=== PATIENT | male | born 1965 | race Caucasian/White ===

== ENCOUNTER → 2019-08-19 | Outpatient (CLI) | payer BC | LOC: CARD 09:09 | PROVIDERS: ATTEND Nurse Practitioner Primary Care | DX: I48.19 Other persistent atrial fibrillation (principal); I27.20 Pulmonary hypertension, unspecified | CPT/HCPCS: 93306 ==

== ENCOUNTER 2019-08-24 06:35 | Day surgery (SDC) | payer BC ==
[~2019-08-24] VITALS: Ht 185 cm; Wt 124.0 kg
[2019-08-24] VITALS (9 sets, daily range): BP systolic 103–139; BP diastolic 86–104
[2019-08-24] MEDS ORDERED: HEParin (CATH LAB) 2,000 ML IV ONE (06:39)
[2019-08-24] MEDS ORDERED: NS IV 1000 ML 1,000 ML ONE (06:39)
[2019-08-24] MEDS ORDERED: LIDOCAINE 1% INJ 20 ML 20 ML VIAL ONE (06:39)
[2019-08-24] MEDS ORDERED: NS IV 1000 ML 1,000 ML IV SCH ×3 (06:45→09:39)
[2019-08-24] MEDS ORDERED: RIVA20TA2 PO (07:10)
[2019-08-24] MEDS ORDERED: MTP25TSR PO (07:10)
[2019-08-24] MEDS ORDERED: ATOR20TA66 PO (07:10)
[2019-08-24 07:11] LABS: HEMOGLOBIN 15.4 G/DL (13.3-17.7); MEAN PLATELET VOLUME 10.3 FL (7.4-10.4); RED CELL DISTRIBUTION WIDTH 13.1 % (10.0-14.5); WHITE BLOOD COUNT 7.9 10^3/uL (4.3-11.0)
[2019-08-24 07:31] LABS: INR 0.9 (0.8-1.4); PROTHROMBIN TIME PATIENT 12.5 SEC (12.2-14.7)
[2019-08-24 07:40] LABS: BILIRUBIN,TOTAL 0.6 MG/DL (0.1-1.0); CALCIUM 9.1 MG/DL (8.5-10.1); CREATININE SERUM 1.28 MG/DL (0.60-1.30); POTASSIUM 4.4 MMOL/L (3.6-5.0); TOTAL PROTEIN 6.9 GM/DL (6.4-8.2)
[2019-08-24] MEDS ORDERED: MIDAZOLAM 5 MG/5 ML (VERSED) VIAL ONE (07:43)
[2019-08-24] MEDS ORDERED: fentaNYL INJECTION 100 MCG/2 ML AMP ONE ×2 (07:43→09:27)
[2019-08-24] MEDS ORDERED: DIGOXIN 0.25 MG (LANOXIN) TAB PO ONE (09:00)
--- NOTE | 2019-08-24 09:34 | Cardiac Procedure Note-CS/ASA ---
Pre-Procedure Note Pre-Op Procedure Note H&P Reviewed The H&P was reviewed, patient examined and no changes noted. Date H&P Reviewed: Aug 24, 2019 Time H&P Reviewed: 08:40 Conscious Sedation Pre-Proced Time 08:40 ASA Score 3 For ASA 3 and 4: Consider anesthesia and medical clearance. Also, for patients with a history of failed moderate sedation consider anesthesia. Airway Lungs Heart ASA score ASA 1: a normal healthy patient ASA 2: a patient with a mild systemic disease (mid diabetes, controlled hypertension, obesity ASA 3: a patient with a severe systemic disease that limits activity (angina, COPD, prior Myocardial infarction) ASA 4: a patient with an incapacitating disease that is a constant threat to life (CHF, renal failure) ASA 5: a moribund patient not expected to survive 24 hrs. (ruptured aneurysm) ASA 6: a declared brain- patient whose organs are being harvested. For emergent operations, add the letter E after the classification Mallampati Classification Grade 2 Sedation Plan Analgesia, Amnesia, Plan communicated to team members, Discussed options with patient/fam, Discussed risks with patient/fam The patient is an appropriate candidate to undergo the planned procedure, sedation, and anesthesia. The patient immediately re-assessed prior to indication. CHUCKY SUTTON MD FACP FAC CCDS Aug 24, 2019 09:34
[2019-08-24] MEDS ORDERED: DIGO250T3 PO (09:38)
--- NOTE | 2019-08-24 09:39 | Discharge Inst-Cardiology ---
Discharge Inst-Cardiac Discharge Medications New Medications: Digoxin (Digoxin) 250 Mcg Tablet 250 MCG PO DAILY, #30 TAB 3 Refills Continued Medications: Atorvastatin Calcium (Atorvastatin Calcium) 20 Mg Tablet 20 MG PO DAILY, TAB Metoprolol Succinate (Metoprolol Succinate) 25 Mg Tab.er.24h 25 MG PO DAILY, TAB Rivaroxaban (Xarelto Tablet) 20 Mg Tablet 20 MG PO DAILY@1700, TAB CHUCKY SUTTON MD FACP FAC CCDS Aug 24, 2019 09:39
--- NOTE | 2019-08-24 09:39 | Discharge Inst-Post CATH ---
Discharge Inst-CATH/EP Post Cardiac Cath/EP D/C Inst Follow Up/Plan F/u with Dr Beverly tomorrow or within this week ACTIVITY * Go Home directly and rest. * Limit activity of the leg (or wrist if it was used) for 7 days including aerobics, swimming, jogging, bicycling, etc. * Restrict stair-climbing for 7 days if possible, if not, climb up with your non-cath leg, then bring together on the same step. * Avoid lifting, pushing, pulling or excessive movement of the affected extremity for 7 days. * Customary sexual activity may be resumed after 2 days-use caution not to use a position that strains or causes pain to the affected extremity. * No driving for 24 hours. * NO SMOKING. * Avoid straining for bowel movements for 7 days. * Gentle walking on level ground is allowed. * Returning to work will depend on the type of procedure and the results. Your doctor will discuss this with you. CALL YOUR DOCTOR FOR ANY OF THE FOLLOWING: *If bleeding from the puncture site occurs- Apply gentle pressure to site with clean cloth and call your doctor or EMS. * If a knot or lump forms under the skin, increases in size, or causes pain. * If bruising appears to be worsening or moving further down your leg instead of disappearing. * Temperature above 101 F. CARE OF YOUR GROIN INCISION; * Bruising or purple discoloration of the skin near the puncture site is common. * You may shower only, no bathtub bathing for 5 days. Be careful to avoid slipping as your leg may feel stiff. * If a closure device was used on your femoral artery, please see the attached guide regarding care of the device and your leg. * Leave dressing on FOR 24 hours. CARE OF YOUR WRIST INCISION; * Bruising or purple discoloration of the skin near the puncture site is common. * You may shower. * DO NOT submerge wrist. * Leave dressing on FOR 24 hours. CHUCKY BEVERLY MD FACP [facility] CCDS Aug 24, 2019 09:39
[2019-08-24] MEDS ORDERED: PATIENT MAY USE OWN MEDS, ALL PO SCH ×2 (09:45)
[2019-08-24] MEDS ORDERED: RIVAROXABAN 20 MG TABLET (XARELTO) PO ONE (09:45)
--- NOTE | 2019-08-24 11:02 | CARDIAC CATHETERIZATION ---
DATE OF SERVICE: 08/24/2019 CARDIAC CATHETERIZATION REPORT INDICATIONS: The patient is a 54-year-old man who has slowly progressive exertional shortness of breath. He has chronic persistent atrial fibrillation that he reports was first diagnosed in or around 2016. He has coronary artery disease risk factors, hypertension, and hyperlipidemia. He has a history of chronic tobacco use. Given his symptoms of shortness of breath and multiple risk factors, complete heart catheterization was recommended and carried out today after having obtained an informed consent. DESCRIPTION OF PROCEDURE: He was brought to the cardiac catheterization laboratory in a fasting state. Right groin was prepared and draped in the usual sterile fashion. Lidocaine 1% was used for local anesthesia. Modified Seldinger technique was used to advance a 5-[place] Island[place] sheath in right femoral artery and a 7-[place] sheath in the right femoral vein. A 7-[place]er [place] catheter was used to carry out right heart catheterization. The [place] catheter was then removed and left heart catheterization was carried out using a 5-[place] pigtail catheter. Left ventricular angiography was performed. Pigtail was pulled back and removed. We used 5-[place] Island[place] JL4 catheter for left coronary angiography, 5-[place] Island[place] JR4 catheter for right coronary angiography. Angiography of the right femoral artery was carried out through the sheath at the end of the procedure. The site of sheath insertion was not suitable for Mynx. Manual pressure was used to achieve hemostasis. He tolerated the procedure well. HEMODYNAMICS: Pulmonary artery pressure was 43/20 with a mean of 28 mmHg. Mean pulmonary wedge pressure was 18 mmHg. Right ventricular pressure was 38/12. Mean right atrial pressure was 11 mmHg. Left ventricular end-diastolic pressure was 16 mmHg. There was no significant pressure gradient on pullback across the aortic valve. Oxygen saturation was measured in the pulmonary artery, right ventricle, right atrium and the left ventricle. There was no significant oxygen saturation difference, indicating no significant intracardiac shunt. LEFT VENTRICULAR ANGIOGRAPHY: Left ventricular angiography was carried out in the right anterior oblique projection only. Global left ventricular systolic function is mildly to moderately impaired. There is mild to moderate global hypokinesis. Left ventricular ejection fraction is approximately 45%. CORONARY ANGIOGRAPHY: Left main coronary artery, left circumflex artery, left anterior descending artery, right coronary artery do not exhibit angiographically significant obstructive coronary artery disease. Right coronary artery is dominant. CONCLUSIONS: 1. No angiographically significant coronary artery disease. 2. Wkzt-hp-nyjnhifa impairment of global left ventricular systolic function with mild to moderate global hypokinesis and left ventricular ejection fraction 40-45%. 3. Mild to moderate elevation of left ventricular end-diastolic pressure and the pulmonary wedge pressure. 4. Mild pulmonary hypertension with a pulmonary artery pressure of 43/20 with a mean of 28 mmHg. DISCUSSION AND RECOMMENDATIONS: Based on the results of this study, our recommendation is to continue efforts at the ventricular rate control or cheondoism of sinus rhythm. These issues have been discussed with him. He will consider electrical cardioversion, although the atrial fibrillation is reported to be relatively chronic. Meanwhile, we will continue average ventricular rate control and treatment with diuretic to reduce risk of decompensated congestive heart failure. Close outpatient followup is advised. Job ID: [id number] DocumentID: [id number] Dictated Date: 08/24/2019 09:29:16 Audio Visual Design Engineer Date: 08/24/2019 11:00:47 Dictated By: CHUCKY SUTTON MD, MA, FACP, FACC,
--- NOTE | 2019-08-24 11:45 | NUR ---
PATIENT REQUESTED TO TAKE HIS XARELTO 20MG HOME MEDICATION WITH METOPROLOL AND DIGOXIN AT 1145 WHEN HE'S 30 DEGREES
== END 2019-08-24 13:53 | disposition home or self-care (01) ==
LOC: CATH 06:35 → SDC 10:33 → CATH 12:35 → SDC 12:35 → CATH 13:53
PROVIDERS: ATTEND Internal Medicine Cardiovascular Disease
DX: I48.20 Chronic atrial fibrillation, unspecified (principal); R55 Syncope and collapse; E78.5 Hyperlipidemia, unspecified; E66.9 Obesity, unspecified; F17.200 Nicotine dependence, unspecified, uncomplicated; Z68.33 Body mass index [BMI] 33.0-33.9, adult; Z90.89 Acquired absence of other organs; Z83.3 Family history of diabetes mellitus
CPT/HCPCS: 36415; 80053; 80061; 85027; 85610; 85730; 87081; 93460

== ENCOUNTER 2023-05-26 15:16 | Emergency (ER) | payer BC ==
[~2023-05-26] VITALS: Ht 185 cm; Wt 118.0 kg
[~2023-05-26 15:16] MED LIST: ATOR20TA66 PO; DIGO250T3 PO; MTP25TSR PO; RIVA20TA2 PO
[2023-05-26] MEDS ORDERED: VERAPAMIL 5 MG/2 ML (CALAN) VIAL IV ONE (15:45)
[2023-05-26] MEDS ORDERED: ASPIRIN 81 MG CHEWABLE TABLET PO ONE (15:45)
[2023-05-26] MEDS ORDERED: NS IV 1000 ML 1,000 ML IV SCH (15:45)
--- NOTE | 2023-05-26 15:47 | ED Cardiac General ---
History of Present Illness General Chief Complaint: Respiratory Problems Stated Complaint: SOB | Nursing Triage Note: PT AMB TO [facility] FROM [facility] WITH C/O SOB X1 WEEK, WORSENS WITH MOVEMENT Source: patient Exam Limitations: no limitations History of Present Illness Date Seen by Provider: May 26, 2023 Time Seen by Provider: 15:42 Initial Comments 58-year-old male with a history of A-fib who is anticoagulated presents from the clinic for shortness of breath and fatigue over the past few days. He presented to the clinic and they sent him here, did not tell him he was in A-fib apparently but did notify us. On arrival he is A-fib RVR rate anywhere from 120s to 170s. He denies any chest pain he is in no significant distress in fact he stopped to get something to eat on the way from the clinic to the emergency department. He is slightly hypotensive at 107 systolic. Denies any dizziness no nausea vomiting. States he is unsure how long he felt this way but noted over the weekend. Again has a longstanding history of A-fib but states he does not believe he is ever gone fast like this. Secondary to systolic blood pressure 107 will administer 5 mg of verapamil and obtain blood work. Timing/Duration: 2-3 days Severity: moderate Activities at Onset: none Prior CP/Workup: other NTG SL SHIPBOARD INTELLIGENCE ANALYST: No ASA po SHIPBOARD INTELLIGENCE ANALYST: No Associated Systoms: Shortness of Air Allergies and Home Medications Allergies Coded Allergies: No Known Allergies (Verified Allergy, Unknown, 08/24/19) Patient Home Medication List Home Medication List Reviewed: Yes Atorvastatin Calcium (Atorvastatin Calcium) 20 Mg Tablet, 20 MG PO DAILY, (Reported) Entered as Reported by: GUILLERMINA CHIN on 08/24/19 07 Digoxin (Digoxin) 250 Mcg Tablet, 250 MCG PO DAILY Prescribed by: CHUCKY SUTTON on 08/24/19 0938 Metoprolol Succinate (Metoprolol Succinate) 25 Mg Tab.er.24h, 25 MG PO DAILY, (Reported) Entered as Reported by: GUILLERMINA CHIN on 08/24/19 07 Rivaroxaban (Xarelto Tablet) 20 Mg Tablet, 20 MG PO DAILY@1700, (Reported) Entered as Reported by: GUILLERMINA CHIN on 08/24/19 0710 Review of Systems Review of Systems Constitutional: see HPI, malaise EENTM: No Symptoms Reported Respiratory: See HPI, Shortness of Air, SOA With Exertion Cardiovascular: See HPI, Palpitations Gastrointestinal: No Symptoms Reported Genitourinary: No Symptoms Reported Musculoskeletal: no symptoms reported Skin: no symptoms reported Psychiatric/Neurological: No Symptoms Reported Endocrine: No Symptoms Reported Hematologic/Lymphatic: No Symptoms Reported All Other Systems Reviewed Negative Unless Noted: Yes Past [id number]-[id number]-[id number] Hx Patient Social History Tobacco Use?: Yes Substance use?: No Alcohol Use?: No Pt feels they are or have been: No Immunizations Up To Date Tetanus Booster (TDap): More than 5yrs Influenza Vaccine Up-to-Date: No; Not Current Past Medical History Surgery/Hospitalization HX: AFIB, HTN ACL SURGERY Respiratory: No Currently Using CPAP: No Currently Using BIPAP: No Cardiac: Yes Atrial Fibrillation, Hypertension Neurological: No Genitourinary: No Gastrointestinal: No Cancer: No Did You Recieve Any Treatments: No Physical Exam Vital Signs Vital Signs - First Documented 05/26/23 15:22 Temp 37.3 Pulse 158 Resp 25 B/P (MAP) 136/108 (117) Pulse Ox 95 O2 Delivery Room Air Capillary Refill : Height, Weight, BMI Height: '" Weight: lbs. oz. kg; 34.00 BMI Method: General Appearance: No Apparent Distress, WD/WN HEENT: PERRL/EOMI Neck: Full Range of Motion, Normal Inspection, Non Tender Respiratory: Chest Non Tender, Lungs Clear, Normal Breath Sounds, No Respiratory Distress Cardiovascular: Normal Peripheral Pulses, Irregularly Irregular, Tachycardia Gastrointestinal: Non Tender Extremity: Normal Inspection, Normal Range of Motion, Non Tender, No Calf Tenderness Neurologic/Psychiatric: Alert, Oriented x3, No Motor/Sensory Deficits, Normal Mood/Affect, word processing operator II-XII Norm as Tested Skin: Normal Color, Warm/Dry Progress/Results/Core Measures Results/Orders Lab Results Laboratory Tests Test 05/26/23 15:30 Range/Units White Blood Count 11.5 H 4.3-11.0 10^3/uL Red Blood Count 4.38 4.30-5.52 10^6/uL Hemoglobin 13.5 13.3-17.7 g/dL Hematocrit 41 40-54 % Mean Corpuscular Volume 94 80-99 fL Mean Corpuscular Hemoglobin 31 25-34 pg Mean Corpuscular Hemoglobin Concent 33 32-36 g/dL Red Cell Distribution Width 12.1 10.0-14.5 % Platelet Count 216 130-400 10^3/uL Mean Platelet Volume 10.2 9.0-12.2 fL Immature Granulocyte % (Auto) 0 % Neutrophils (%) (Auto) 71 42-75 % Lymphocytes (%) (Auto) 15 12-44 % Monocytes (%) (Auto) 12 0-12 % Eosinophils (%) (Auto) 1 0-10 % Basophils (%) (Auto) 1 0-10 % Neutrophils # (Auto) 8.2 H 1.8-7.8 X 10^3 Lymphocytes # (Auto) 1.7 1.0-4.0 X 10^3 Monocytes # (Auto) 1.3 H 0.0-1.0 X 10^3 Eosinophils # (Auto) 0.2 0.0-0.3 10^3/uL Basophils # (Auto) 0.1 0.0-0.1 10^3/uL Immature Granulocyte # (Auto) 0.1 0.0-0.1 10^3/uL Prothrombin Time 15.5 H 12.2-14.7 SEC INR Comment 1.2 0.8-1.4 Activated Partial Thromboplast Time 29 24-35 SEC Sodium Level 135 135-145 MMOL/L Potassium Level 4.3 3.6-5.0 MMOL/L Chloride Level 102 98-107 MMOL/L Carbon Dioxide Level 22 21-32 MMOL/L Anion Gap 11 5-14 MMOL/L Blood Urea Nitrogen 28 H 7-18 MG/DL Creatinine 1.37 H 0.60-1.30 MG/DL Estimat Glomerular Filtration Rate 60 BUN/Creatinine Ratio 20 Glucose Level 154 H 70-105 MG/DL Calcium Level 9.3 8.5-10.1 MG/DL Corrected Calcium 9.6 8.5-10.1 MG/DL Magnesium Level 2.1 1.6-2.4 MG/DL Total Bilirubin 1.4 H 0.1-1.0 MG/DL Aspartate Amino Transf (AST/SGOT) 32 5-34 U/L Alanine Aminotransferase (ALT/SGPT) 43 0-55 U/L Alkaline Phosphatase 81 40-136 U/L Myoglobin 153.2 H 10.0-92.0 NG/ML Troponin I < 0.028 <0.028 NG/ML B-Type Natriuretic Peptide 290.0 H <100.0 PG/ML Total Protein 7.4 6.4-8.2 GM/DL Albumin 3.6 3.2-4.5 GM/DL My Orders Orders - RAFY ZHANG DO Ekg Tracing (05/26/23 15:25) Cbc And Automated Diff (05/26/23 15:40) Magnesium (05/26/23 15:40) Chest 1 View, Ap/Pa Only (05/26/23 15:40) Comprehensive Metabolic Panel (05/26/23 15:40) Myoglobin Serum (05/26/23 15:40) Protime With Inr (05/26/23 15:40) Partial Thromboplastin Time (05/26/23 15:40) O2 (05/26/23 15:40) Monitor-Rhythm Ecg Trace Only (05/26/23 15:40) Lipid Panel (05/27/23 06:00) Ed Iv/Invasive Line Start (05/26/23 15:40) Bnp Tillman (05/26/23 15:40) Troponin I Lino (05/26/23 15:40) Aspirin Chewable Tablet (Aspirin Chewabl (05/26/23 15:45) Verapamil Injection (Calan Injection) (05/26/23 15:45) Ns Iv 1000 Ml (Ns Iv 1000 Ml) (05/26/23 15:45) Metoprolol Tartrate Injection (Metoprolo (05/26/23 16:00) Aspirin Chewable Tablet (Aspirin Chewabl (05/26/23 16:13) Medications Given in ED Current Medications Medications Dose Ordered Sig/Poornima Route Start Time Stop Time Status Last Admin Dose Admin Aspirin 324 mg ONCE ONCE PO 05/26/23 15:45 05/26/23 15:46 DC 05/26/23 15:45 324 MG Metoprolol Tartrate 5 mg ONCE ONCE IV 05/26/23 16:00 05/26/23 16:01 DC 05/26/23 16:08 5 MG Verapamil HCl 5 mg ONCE ONCE IV 05/26/23 15:45 05/26/23 15:46 DC 05/26/23 15:45 5 MG Vital Signs/I&O 05/26/23 15:22 Temp 37.3 Pulse 158 Resp 25 B/P (MAP) 136/108 (117) Pulse Ox 95 O2 Delivery Room Air Blood Pressure Mean: 117 Progress Progress Note : Progress Note Patient in A-fib RVR denies any significant symptoms at this time while lying in the bed. Will vamp stitcher verapamil, 5 mg IV secondary to blood pressure being somewhat low. 5 mg of verapamil did bring her rate down in the 110s to 1 teens systolic blood pressure did improve to 128/96. Cardiac panel ordered as well as chest x-ray although patient is anticoagulated will not attempt cardioversion at this time. We will also provide 5 mg of metoprolol as heart rate is still in the lower 100s but blood pressure is elevated. [address] Pozo. Whenever patient's initial presentation and his reaction to medication. Reviewed his medication list. Patient is on digoxin to 50 mcg daily metoprolol 25 mg daily Xarelto 20 mg daily atorvastatin calcium 20 mg daily. We discussed increasing patient's metoprolol to 50 mg daily with a as needed 50 mg for tachycardia. Discussed labs that all are negative mild elevation of BNP to be expected with prolonged A-fib RVR. Dr. Pozo agrees patient can be sent home he will follow-up in the clinic. Discussed with patient who is pleased with this and is feeling better overall although he was essentially asymptomatic on presentation. Heart rate at this time running from the mid 90s to low 100s, blood pressure currently 112/86. No indication for delta troponin secondary to multiple days of symptom onset Initial ECG Impression Date: May 26, 2023 Initial ECG Impression Time: 15:28 Initial ECG Rate: 151 Initial ECG Rhythm: A Fib/Flutter Initial ECG Impression: Atrial Fibrillation w/RVR Departure Communication (Admissions) Time/Spoke to Consulting Phy: 16:49 (Discussed case with Dr. Pozo) Impression Primary Impression: Atrial fibrillation with RVR Disposition: HOME, SELF-CARE Condition: Improved Departure-Patient Inst. Referrals: KRYS ENG APRN (PCP/Family) Primary Care Physician Add. Discharge Instructions: As per my discussion with Dr. Pozo, we would like you to increase her metoprolol to 50 mg daily from 25 mg. Also if you develop tachycardia or rapid heart rate greater than 110 take an additional 50 mg of metoprolol. Follow-up with Dr. Pozo in the clinic, call his clinic tomorrow to schedule this appointment. If symptoms recur or new symptoms develop come immediately back to the emergency department. All discharge instructions reviewed with patient and/or family. Voiced understanding. Scripts Metoprolol Tartrate (Metoprolol Tartrate) 25 Mg Tablet 50 MG PO DAILY PRN for tachycardia, #60 TAB Prov: RAFY ZHANG DO 05/26/23 RAFY ZHANG DO May 26, 2023 15:47
[2023-05-26 15:49] LABS: ALBUMIN 3.6 GM/DL (3.2-4.5); CHLORIDE 102 MMOL/L (98-107); POTASSIUM 4.3 MMOL/L (3.6-5.0); SODIUM 135 MMOL/L (135-145)
[2023-05-26 15:50] LABS: CALCIUM 9.3 MG/DL (8.5-10.1)
[2023-05-26 15:51] LABS: GLUCOSE 154 MG/DL (70-105); TOTAL PROTEIN 7.4 GM/DL (6.4-8.2)
[2023-05-26 15:52] LABS: CARBON DIOXIDE 22 MMOL/L (21-32)
[2023-05-26 15:53] LABS: BASOPHILS # (AUTO) 0.1 10^3/uL (0.0-0.1); BASOPHILS % (AUTO) 1 % (0-10); BILIRUBIN,TOTAL 1.4 MG/DL (0.1-1.0); EOSINOPHILS # (AUTO) 0.2 10^3/uL (0.0-0.3); EOSINOPHILS % (AUTO) 1 % (0-10); HEMATOCRIT 41 % (40-54); HEMOGLOBIN 13.5 g/dL (13.3-17.7); LYMPHOCYTES # (AUTO) 1.7 X 10^3 (1.0-4.0); LYMPHOCYTES % (AUTO) 15 % (12-44); MEAN CORPUSCULAR HEMOGLOBIN 31 pg (25-34); MEAN CORPUSCULAR HGB CONC 33 g/dL (32-36); MEAN CORPUSCULAR VOLUME 94 fL (80-99); MEAN PLATELET VOLUME 10.2 fL (9.0-12.2); MONOCYTES # (AUTO) 1.3 X 10^3 (0.0-1.0); MONOCYTES % (AUTO) 12 % (0-12); NEUTROPHILS # (AUTO) 8.2 X 10^3 (1.8-7.8); NEUTROPHILS % (AUTO) 71 % (42-75); PLATELET COUNT 216 10^3/uL (130-400); WHITE BLOOD COUNT 11.5 10^3/uL (4.3-11.0)
[2023-05-26 15:54] LABS: ALKALINE PHOSPHATASE 81 U/L (40-136)
[2023-05-26 15:55] LABS: CREATININE SERUM 1.37 MG/DL (0.60-1.30); GFR ESTIMATED 60
[2023-05-26 15:56] LABS: BUN/CREATININE RATIO 20
[2023-05-26 15:57] LABS: MAGNESIUM 2.1 MG/DL (1.6-2.4)
[2023-05-26 15:58] LABS: ALANINE AMINOTRANSFERASE 43 U/L (0-55); INR 1.2 (0.8-1.4); PROTHROMBIN TIME PATIENT 15.5 SEC (12.2-14.7)
[2023-05-26] MEDS ORDERED: meTOprolol INJECTION 5 MG/5 ML VIAL IV ONE (16:00)
--- NOTE | 2023-05-26 16:02 | Diagnostic Imaging Report ---
INDICATION: Chest pain. TECHNIQUE: Frontal chest obtained at 03:54 p.m. FINDINGS: Heart and mediastinal silhouette are normal in appearance. The lungs are clear. There is no pneumothorax or pleural fluid. IMPRESSION: Negative chest. Dictated by: Dictated on workstation # [id number]
[2023-05-26] MEDS ORDERED: ASPIRIN 81 MG CHEWABLE TABLET ONE (16:13)
[2023-05-26] MEDS ORDERED: METO-333 PO (16:52)
[2023-05-26 17:07] VITALS: BP 112/86
== END 2023-05-26 17:07 | disposition home or self-care (01) ==
LOC: EDUNIT# 15:16 → ER 15:18
DX: I48.91 Unspecified atrial fibrillation (principal); Z79.01 Long term (current) use of anticoagulants
CPT/HCPCS: 36415; 71045; 80053; 83735; 83874; 83880; 84484; 85025; 85610; 85730; 93005; 93041; 96361; 96374

== ENCOUNTER → 2023-05-29 | Outpatient (CLI) | payer BC ==
[~2023-05-29] MED LIST changes: +METO-333 PO
== END ==
LOC: RAD 12:49
PROVIDERS: ATTEND Internal Medicine Cardiovascular Disease
DX: I50.9 Heart failure, unspecified (principal)
CPT/HCPCS: 93306